=== PATIENT | male | born 1945 | race Caucasian/White ===

== ENCOUNTER 2020-02-13 14:08 | Day surgery (SDC) | payer OTHER ==
[~2020-02-13] VITALS: Ht 190.5 cm; Wt 109.2 kg
[2020-02-13] VITALS (7 sets, daily range): BP systolic 129–158; BP diastolic 71–106
[~2020-02-13 14:08] MED LIST: ASPI-1265 PO; CALC250T2 PO; CHOL500044 PO; FENO45CA2 PO; IRBE300T18 PO; METO50TA7 PO; ROSU10TA2 PO
[2020-02-13] MEDS ORDERED: ceFAZolin 2gm in dextrose, iso 50 ML IV ONE ×2 (14:40→17:48)
[2020-02-13] MEDS ORDERED: normal saline 1000ml 1,000 ML IV SCH (14:40)
[2020-02-13] MEDS ORDERED: AMLO10TA PO (15:32)
[2020-02-13] MEDS ORDERED: CAND1TAB PO (15:32)
[2020-02-13] MEDS ORDERED: MULT-227 PO (15:32)
[2020-02-13] MEDS ORDERED: ceFAZolin 1000mg inj ONE (17:48)
[2020-02-13] MEDS ORDERED: LIDOcaine 1% W/epiNEPHrine 1:100,000 20ml vial ONE (17:48)
[2020-02-13] MEDS ORDERED: fentaNYL/PF 50MCG/1 ML 2ML syringe ONE ×2 (17:48→18:27)
[2020-02-13] MEDS ORDERED: midazolam 2 mg/2 ml injection ONE ×3 (17:48→18:27)
== END 2020-02-13 20:45 | disposition home or self-care (01) ==
LOC: SSTAY O 14:08
PROVIDERS: ATTEND Internal Medicine Interventional Cardiology
DX: I44.1 Atrioventricular block, second degree (principal); E11.22 Type 2 diabetes mellitus with diabetic chronic kidney disease; I12.9 Hypertensive chronic kidney disease with stage 1 through stage 4 chronic kidney disease, or unspecified chronic kidney disease; N18.9 Chronic kidney disease, unspecified; E78.49 Other hyperlipidemia; I42.9 Cardiomyopathy, unspecified; I25.10 Atherosclerotic heart disease of native coronary artery without angina pectoris; Z95.1 Presence of aortocoronary bypass graft; Z79.82 Long term (current) use of aspirin; Z79.899 Other long term (current) drug therapy
CPT/HCPCS: 33208; 93005; 99152; 99153; C1785; C1898; J0690; J2250; J3010; A4565; A4620; A6449

== ENCOUNTER 2021-02-12 12:36 | Day surgery (SDC) | payer OTHER ==
[~2021-02-12] VITALS: Ht 190.5 cm; Wt 107.3 kg
[2021-02-12] VITALS (7 sets, daily range): BP systolic 87–158; BP diastolic 68–83
[~2021-02-12 12:36] MED LIST changes: +AMLO10TA PO; -CALC250T2 PO; +CAND1TAB PO; -CHOL500044 PO; -IRBE300T18 PO; -METO50TA7 PO; +MULT-227 PO
[2021-02-12] MEDS ORDERED: ceFAZolin 2gm in dextrose, iso 50 ML IV ONE (13:10)
[2021-02-12] MEDS ORDERED: normal saline 1000ml 1,000 ML IV SCH (13:10)
[2021-02-12] MEDS ORDERED: CLOP75TA34 PO (13:21)
[2021-02-12] MEDS ORDERED: CARV25TA56 PO (13:21)
[2021-02-12] MEDS ORDERED: SACU1TAB7 PO (13:21)
[2021-02-12] MEDS ORDERED: ceFAZolin 1000mg inj ONE (14:38)
[2021-02-12] MEDS ORDERED: fentaNYL/PF 50MCG/1 ML 2ML syringe ONE (14:38)
[2021-02-12] MEDS ORDERED: midazolam 1 mg/ML 2ml injection ONE ×2 (14:38→15:24)
[2021-02-12] MEDS ORDERED: LIDOCAINE 1%/EPI 1:100,000 inj. 10 ML multi-dose vial ONE (14:39)
[2021-02-12] MEDS ORDERED: LIDOcaine 1% w/EPI 1:100,000 30ml vial (MDV) ONE (14:39)
[2021-02-12] MEDS ORDERED: ceFAZolin/D5W- 1GM premix 50 ML IV SCH (16:32)
[2021-02-12] MEDS ORDERED: HYDROcodone/acetaminophen 10/325mg tab PO PRN (16:35)
[2021-02-12] MEDS ORDERED: LORazepam 1 MG tablet PO PRN (16:35)
[2021-02-12] MEDS ORDERED: HYDROcodone/acetaminophen 5mg/325mg tablet PO PRN (16:35)
== END 2021-02-12 18:20 | disposition home or self-care (01) ==
LOC: SSTAY O 12:36
PROVIDERS: ATTEND Internal Medicine Interventional Cardiology
DX: Z45.02 Encounter for adjustment and management of automatic implantable cardiac defibrillator (principal); I42.0 Dilated cardiomyopathy; I25.5 Ischemic cardiomyopathy; E11.22 Type 2 diabetes mellitus with diabetic chronic kidney disease; I13.0 Hypertensive heart and chronic kidney disease with heart failure and stage 1 through stage 4 chronic kidney disease, or unspecified chronic kidney disease; I50.22 Chronic systolic (congestive) heart failure; N18.9 Chronic kidney disease, unspecified; I25.2 Old myocardial infarction; I25.10 Atherosclerotic heart disease of native coronary artery without angina pectoris; I44.1 Atrioventricular block, second degree; I65.29 Occlusion and stenosis of unspecified carotid artery; I47.2 Ventricular tachycardia; Z79.82 Long term (current) use of aspirin; Z79.899 Other long term (current) drug therapy; Z95.1 Presence of aortocoronary bypass graft
CPT/HCPCS: 33241; 33244; 33249; 99152; 99153; C1721; C1895; J0690; J2250; J3010; 33234; A4565; A4620; A6258; C1777